=== PATIENT | female | born 1975 | race Caucasian/White ===

== ENCOUNTER 2016-10-31 00:51 | Emergency (ER) | payer OTHER ==
--- NOTE | ~2016-10-31 | CR63 ---
[facility] A Service of [facility] & [facility] RADIOLOGY TEXT RESULTS PATIENT: ADY ARTEAGA LOCATION: [facility] : 73 UNIT #: [id number] AGE: [address]: Charlene Dunn APRN SEX: F ORDER DR: [id number] [facility] [address] [place], [place] [address] [id number] E MR#: [id number] Acc #: [id number] NAME: ADY ARTEAGA. : 1975 SEX: F STUDY DATE/TIME: 10/31/2016 1:30 UNIT: [facility] ROOM: STUDY DESCRIPTION: CR Chest 2 View Attending Physician: Charlene Dunn A.P.R.N. Ordering Physician: Charlene Dunn A.P.R.N. Primary Care Physician: Primary Care Physician No MEDICAL IMAGING REPORT This report is preliminary unless electronic signature is present EXAM Chest x-ray, 10/31/2016 HISTORY 41-year-old female in the ED complaining of 2-3-day history of cough, congestion and weakness. TECHNIQUE PA and lateral upright chest series. FINDINGS The examination is negative. Heart size and pulmonary vascularity are normal. The lungs are clear. No visible pulmonary infiltrate or pleural effusion. IMPRESSION Negative chest. Dictated by... Ko Askew M.D. THIS IS AN ELECTRONICALLY VERIFIED REPORT Ko Askew M.D. at 11/04/2016 5:00 PM Betzaida TD: 10/31/2016 07:56 JOB #: [id number] MEDICAL IMAGING REPORT Page 1 of 1 COPY
--- NOTE | ~2016-10-31 | CT2 ---
[facility] A Service of [facility] RADIOLOGY TEXT RESULTS PATIENT: ADY ARTEAGA LOCATION: [facility] : 73 UNIT #: [id number] AGE: [address]: Charlene Dunn APRN SEX: F ORDER DR: [id number] [facility] [address] [place], [place] [address] [id number] E MR#: [id number] Acc #: [id number] NAME: ADY ARTEAGA. : 1975 SEX: F STUDY DATE/TIME: 10/31/2016 2:22 UNIT: [facility] ROOM: STUDY DESCRIPTION: CT Abd and Pelv W Cont Attending Physician: Charlene Dunn A.P.R.N. Ordering Physician: Charlene Dunn A.P.R.N. Primary Care Physician: No Primary Care Physician MEDICAL IMAGING REPORT This report is preliminary unless electronic signature is present EXAM CT abdomen and pelvis with contrast, 10/31/2016. HISTORY 41-year-old female in the ED complaining of 2-3-day history of generalized abdomen pain, nausea, vomiting and diarrhea. Cough. Weakness. TECHNIQUE CT examination of the abdomen and pelvis was performed with IV contrast. GI contrast material was not ordered. This CT exam was performed with one or more of the following radiation dose reduction techniques: automatic exposure control, adjustment of mA and/or kV according to patient size, and iterative reconstruction. ABDOMEN FINDINGS Cholecystectomy. Mild bile duct dilatation, not unusual in post cholecystectomy patients. Liver, pancreas and spleen are normal in size and appearance. Both kidneys are negative with no evidence of urinary obstruction. Small bowel and colon are normal in caliber and appearance, as imaged. The appendix is normal. Normal-caliber abdominal aorta. PELVIS FINDINGS Uterus, ovaries, bladder and rectum are within normal limits. Tampon within the vagina. No inguinal hernia or significant abdominal wall hernia. Limited lung base images show no active disease in the lower chest. IMPRESSION 1. No acute abnormality within the abdomen or pelvis. 2. Cholecystectomy. 3. The appendix is normal. [facility] A Service of [facility] RADIOLOGY TEXT RESULTS PATIENT: ADY ARTEAGA LOCATION: [facility] : 73 UNIT #: [id number] AGE: [address]: Charlene Dunn APRN SEX: F ORDER DR: Dictated by... Ko Askew M.D. THIS IS AN ELECTRONICALLY VERIFIED REPORT Ko Askew M.D. at 11/04/2016 5:01 PM AIME/john TD: 10/31/2016 08:14 JOB #: [id number] MEDICAL IMAGING REPORT Page 1 of 1 COPY
[~2016-10-31 00:51] MED LIST: CIPRO PO; COMPAZINE10 MG PO; DICLOFENAC PO; IBUPROFEN800 MG PO; KEFLEX PO; NO MEDICATIONS; PHENERGAN25 M1 PO; PHENERGAN25 MG PO; PYRIDIUM PO; ROBAXIN500 MG PO; VICODIN 5/1 TAB 5/50 PO; VICODIN 5/500 T1 TAB PO; VOLTAREN75 MG PO
[2016-10-31 01:03] LABS: INFLUENZA A NEG (NEG); INFLUENZA B NEG (NEG)
[2016-10-31 01:17] LABS: BASOPHIL% 0.4 % (0-2.5); DIFF IND NO; EOSINOPHIL% 0.3 % (0.0-7.0); HEMATOCRIT 42.1 % (35.0-45.0); HEMOGLOBIN 14.1 gm/dL (12.0-16.0); LYMPHOCYTE# 1.8 X10e3 (1.0-3.5); LYMPHOCYTE% 15.4 % (17.0-45.0); MEAN CELL VOLUME 93.2 FL (83-96); MEAN CORPUSCULAR HEMOGLOBIN 31.3 PG (28-34); MEAN CORPUSCULAR HGB CONC 33.6 g/dL (30-36); MEAN PLATELET VOLUME 9.7 FL (6.5-11.5); MONOCYTE# 0.8 X10e3 (0-1.0); MONOCYTE% 7.4 % (3.0-12.0); NEUTROPHIL# 8.7 X10e3 (1.5-7.1); NEUTROPHIL% 76.5 % (40-75); PLATELET COUNT 240 X10e3 (140-420); RED BLOOD COUNT 4.51 X10e (3.90-5.30); RED CELL DISTRIBUTION WIDTH 12.3 % (11.0-15.5); WHITE BLOOD COUNT 11.4 X10e3 (4.0-10.5)
[2016-10-31 01:44] LABS: ALBUMIN SERUM 4.3 g/dL (3.5-5.0); BILIRUBIN,TOTAL 0.6 mg/dL (0.2-2.0); BUN/CREATININE RATIO 14.28; CALCIUM SERUM 9.1 mg/dL (8.4-10.2); CREATININE SERUM 0.7 mg/dL (0.6-1.4); GLOM FILT RATE Estimated 106.9 mL/min (>60); POTASSIUM 3.6 mmol/L (3.5-5.1); PROTEIN TOTAL SERUM 7.7 g/dL (6.0-8.3)
== END 2016-10-31 03:40 | disposition home or self-care (01) ==
LOC: CED 00:51
PROVIDERS: Nurse Practitioner
DX: J06.9 Acute upper respiratory infection, unspecified (principal); R11.0 Nausea; F17.210 Nicotine dependence, cigarettes, uncomplicated; Z90.49 Acquired absence of other specified parts of digestive tract
CPT/HCPCS: 36415; 71020; 74177; 80053; 85025; 87651; 87804; 96361; 96374; 96375; 99284; Q9967

== ENCOUNTER 2016-11-19 07:45 | Emergency (ER) | payer OTHER ==
--- NOTE | ~2016-11-19 | CR63 ---
[facility] A Service of [facility] & [facility] RADIOLOGY TEXT RESULTS PATIENT: ADY ARTEAGA LOCATION: [facility] : 73 UNIT #: [id number] AGE: [address]: KENY MAIER SEX: F ORDER DR: [id number] [facility] [address] [place], [place] [address] [id number] E MR#: [id number] Acc #: [id number] NAME: ADY ARTEAGA : 1975 SEX: F STUDY DATE/TIME: 11/19/2016 7:35 UNIT: [facility] ROOM: STUDY DESCRIPTION: CR Chest 2 View Attending Physician: Keny Maier Aprn Ordering Physician: Keny Maier Aprn Primary Care Physician: Primary Care Physician No MEDICAL IMAGING REPORT This report is preliminary unless electronic signature is present EXAM PA and lateral chest DATE: 11/19/2016 HISTORY 41-year-old female with left arm, shoulder pain, shortness of breath, cough and chest pain. Symptoms began Thursday morning. 30 year smoking history. COMPARISON PA and lateral chest 10/31/2016. CT Abdomen: Lung windows 10/31/2016. FINDINGS No acute airspace disease is seen. Heart size is within normal limits. No pleural effusion or pneumothorax is identified. IMPRESSION 1. No acute cardiopulmonary findings. Dictated by... Shu Ruiz M.D. THIS IS AN ELECTRONICALLY VERIFIED REPORT Shu Ruiz M.D. at 11/20/2016 7:02 AM [facility]/lucie TD: 11/19/2016 10:55 JOB #: [id number] MEDICAL IMAGING REPORT Page 1 of 1 COPY
--- NOTE | ~2016-11-19 | EKG ---
PATIENT: ADY ARTEAGA UNIT #: [id number] Ventricular Rate: 67 BPM Atrial Rate: 67 BPM P-R Interval: 138 ms QRS Duration: 74 ms Q-T Interval: 388 ms QTC Calculation(Bezet): 409 ms P [place]: 51 degrees Calculated R [place]: 51 degrees Calculated T [place]: 59 degrees Diagnosis Line: Normal sinus rhythm Diagnosis Line: Normal ECG Diagnosis Line: Diagnosis Line: Confirmed by YON DRISCOLL MD ([id number]) on 11/20/2016 Diagnosis Line: 7:51:54 PM INTERPRETING MD: AMERICO TRUJILLO
[2016-11-19 08:10] LABS: BASOPHIL# 0.1 X10e3 (0-0.3); BASOPHIL% 0.8 % (0-2.5); EOSINOPHIL# 0.2 X10e3 (0-0.7); EOSINOPHIL% 1.7 % (0.0-7.0); HEMATOCRIT 41.9 % (35.0-45.0); HEMOGLOBIN 14.1 gm/dL (12.0-16.0); LYMPHOCYTE# 3.4 X10e3 (1.0-3.5); LYMPHOCYTE% 28.6 % (17.0-45.0); MEAN CELL VOLUME 93.3 FL (83-96); MEAN CORPUSCULAR HEMOGLOBIN 31.3 PG (28-34); MEAN CORPUSCULAR HGB CONC 33.6 g/dL (30-36); MEAN PLATELET VOLUME 9.6 FL (6.5-11.5); MONOCYTE% 8.6 % (3.0-12.0); NEUTROPHIL# 7.1 X10e3 (1.5-7.1); NEUTROPHIL% 60.3 % (40-75); PLATELET COUNT 237 X10e3 (140-420); RED BLOOD COUNT 4.49 X10e (3.90-5.30); RED CELL DISTRIBUTION WIDTH 12.1 % (11.0-15.5); WHITE BLOOD COUNT 11.8 X10e3 (4.0-10.5)
[2016-11-19 08:19] LABS: DIFF IND NO
[2016-11-19 08:20] LABS: POC - CKMB <1.0 ng/mL (0.0-7.9); POC - TROPONIN <0.05 ng/mL (<=0.05)
[2016-11-19 08:30] LABS: URINE SOURCE CLEAN CATCH
[2016-11-19 08:38] LABS: CREATININE SERUM 0.7 mg/dL (0.6-1.4); GLOM FILT RATE Estimated 106.9 mL/min (>60); POTASSIUM 3.3 mmol/L (3.5-5.1)
[2016-11-19 08:40] LABS: URINE APPEARANCE CLEAR; URINE BILIRUBIN NEG (NEG); URINE BLOOD NEG (NEG); URINE COLOR YELLOW; URINE GLUCOSE NEG (NEG); URINE KETONE NEG (NEG); URINE LEUKOCYTE ESTERASE NEG (NEG); URINE NITRATE NEG (NEG); URINE PROTEIN NEG (NEG); URINE SPECIFIC GRAVITY 1.005 (1.003-1.035); URINE UROBILINOGEN 0.2 MG/DL (NEG)
[2016-11-19 08:43] LABS: CULTURE INDICATED? NO
== END 2016-11-19 11:03 | disposition home or self-care (01) ==
LOC: CED 07:45
PROVIDERS: Nurse Practitioner Family
DX: S29.012A Strain of muscle and tendon of back wall of thorax, initial encounter (principal); R07.89 Other chest pain; F17.210 Nicotine dependence, cigarettes, uncomplicated; Z90.49 Acquired absence of other specified parts of digestive tract; X50.9XXA Other and unspecified overexertion or strenuous movements or postures, initial encounter
CPT/HCPCS: 36415; 71020; 80048; 81003; 82553; 84484; 84703; 85025; 93005; 96374; 99284; J1885